=== PATIENT | male | born 2005 | race Caucasian/White ===

== ENCOUNTER 2024-07-29 10:30 | Emergency (ER) | payer BC, SELFPAY ==
[2024-07-29 10:35] VITALS: BP 126/62; PULSE 116; TEMP 36.8; O2SAT 95; BMI 23.0
--- NOTE | 2024-07-29 10:59 | XR_ITS ---
The [address] [address] Patient Name: MIGDALIA FAN MRN: [id number] date: 2005 Sex: M Assigned Patient Location: ER Current Patient Location: ER Accession/Order Number: [id number] Exam Date: 07/29/2024 11:12 Report Date: 07/29/2024 11:38 At the request of: BASIM GUTIERREZ Procedure: XR chest 1V EXAM: XR chest 1V HISTORY: sob COMPARISON: None. TECHNIQUE: The chest FINDINGS: No focal consolidation, pneumothorax, pleural effusion or significant pulmonary vascular congestion. The cardiomediastinal silhouette is within normal limits. No acute osseous abnormality. Visualized upper abdomen is unremarkable. XR/XR chest 1V IMPRESSION: No acute cardiopulmonary process. Electronically authenticated by: STUART WEN Date: 07/29/2024 11:38
[2024-07-29] MEDS: METHYLPREDNISOLONE SOD SUCC PF 125 MG/2 ML VIAL IVP (11:05)
[2024-07-29] MEDS: IPRATROPIUM/ALBUTEROL SULFATE 3 ML AMPUL.NEB IH (11:19)
[2024-07-29 11:22] VITALS: O2SAT 95
[2024-07-29] MEDS: ALBUTEROL SULFATE 200 PUFF/6.7 GM INHALER IH (11:55)
[2024-07-29 12:04] LABS: Basophils Percent Auto 0.4 % (0.2-2.0); Eosinophils Absolute Auto 1.3 10^3/uL (0.0-0.7); Eosinophils Percent Auto 15.3 % (0.9-7.0); Hematocrit 48.9 % (42.0-54.0); Hemoglobin 16.2 g/dL (14.0-18.0); Immature Granulocytes Abs Auto 0.02 10^3/uL (0.00-0.03); Immature Granulocytes Pct Auto 0.2 % (0.0-0.5); Lymphocytes Absolute Auto 2.1 10^3/uL (1.2-3.8); Lymphocytes Percent Auto 24.4 % (20.5-60.0); Mean Corpuscular HGB Conc 33.1 g/dL (29.9-35.2); Mean Corpuscular Hemoglobin 27.8 pg (25.9-34.0); Mean Platelet Volume 9.9 fL (9.5-13.5); Monocytes Absolute Auto 0.4 10^3/uL (0.3-0.8); Monocytes Percent Auto 4.9 % (1.7-12.0); Neutrophils Absolute Auto 4.7 10^3/uL (1.4-6.5); Neutrophils Percent Auto 54.8 % (43.0-75.0); Platelet Count 230 10^3/uL (150-450); Red Blood Count 5.82 10^6/uL (4.70-6.10); Red Cell Distribution Width 12.4 % (11.0-15.0); White Blood Count 8.5 10^3/uL (4.0-11.0)
--- NOTE | 2024-07-29 12:28 | ED_ITS ---
HPI - SOB/Dyspnea General Chief Complaint: Shortness of Breath/Dyspnea Stated Complaint: SOB Time Seen by Provider: 07/29/24 10:57 Source: patient Mode of arrival: walk-in Limitations: no limitations History of Present Illness HPI Narrative: The patient is coming to us with asthma exacerbation that started this morning, according to him he usually does wake up sometime in the morning short of breath according to his mom at the bedside he is supposed to be in [facility] she mentioned that it was only the inhaler that they were able to provide him with the sample from the doctor office, patient mentioned that the medication expense is the reason he is on [facility] Related Data Home Medications ?Medication ?Instructions ?Recorded ?Confirmed albuterol sulfate 2.5 mg/3 mL 2.5 mg inhalation Q6H PRN 07/29/24 07/29/24 (0.083 %) solution for nebulization shortness of breath or wheezing fexofenadine 180 mg tablet 180 mg PO DAILY 07/29/24 07/29/24 ([facility]) montelukast 10 mg tablet 10 mg PO DAILY 07/29/24 07/29/24 tiotropium bromide 1.25 2 inh inhalation DAILY 07/29/24 07/29/24 mcg/actuation mist for inhalation ([facility] Respimat) Previous Rx's ?Medication ?Instructions ?Recorded albuterol sulfate 2.5 mg/3 mL 2.5 mg (3 mL) inhalation QID PRN 07/29/24 (0.083 %) solution for nebulization shortness of breath or wheezing #90 mL albuterol sulfate 90 mcg/actuation 2 inh inhalation Q6H PRN shortness 07/29/24 aerosol inhaler (Ventolin HFA) of breath or wheezing #8.5 grams prednisone 20 mg tablet 40 mg (2 x 20 mg) PO DAILY 5 days 07/29/24 #10 tabs Allergies Allergy/AdvReac Type Severity Reaction Status Date / Time No Known Drug Allergies Allergy Verified 07/29/24 10:35 Review of Systems ROS Status of ROS 10 or more systems reviewed and unremark able except as noted in history and below PFSH PFSH Social History Little interest or pleasure in doing things: not at all Feeling down, depressed, or hopeless: not at all Exam Narrative Exam Narrative: Nurses notes and vital signs reviewed and patient is not hypoxic. General: Well-appearing and in no apparent distress. Skin: Warm, dry, no pallor noted. No rash. Head: Normocephalic, atraumatic. Neck: Supple, non-tender. Eye: Pupils are equal, round and EOMI. No scleral icterus. Ears, Nose, Mouth, and Throat: TM are clear, no nasal mucosal hypertrophy. Oral mucosa is moist, no posterior oropharynx erythema, uvula is mid-line Cardiovascular: Regular Rate and Rhythm without murmur, gallop or rub. Respiratory: Decreased air entry bilaterally with distant breathing sound Back: No midline thoracic or lumbar vertebral tenderness. No CVA tenderness Musculoskeletal: normal ROM, no calf or popliteal tenderness, no lower extrem ity edema/swelling GI: Abdomen is soft, non-distended. Normal bowel sounds. No masses appreciated. No tenderness to palpation. No rebound, guarding, or rigidity noted. Neurological: A&O x4. No cranial nerve dysfunction observed. No truncal ataxia. Moves all extremities. Sensation intact. Psychiatric: Cooperative and interactive. Normal mood and affect. Constitutional Vital Signs, click to edit/add: Last Vital Signs Temp 98.2 F 07/29/24 10:35 Pulse 116 H 07/29/24 10:35 Resp 18 07/29/24 10:35 BP 126/62 07/29/24 10:35 Pulse Ox 95 07/29/24 11:22 O2 Del Method Room Air 07/29/24 11:22 Course Vital Signs Vital signs: Vital Signs Temperature 98.2 F 07/29/24 10:35 Pulse Rate 116 H 07/29/24 10:35 Respiratory Rate 18 07/29/24 10:35 Blood Pressure 126/62 07/29/24 10:35 Pulse Oximetry 95 07/29/24 10:35 Temperature 98.2 F 07/29/24 10:35 Pulse Rate 116 H 07/29/24 10:35 Respiratory Rate 18 07/29/24 10:35 Blood Pressure 126/62 07/29/24 10:35 Pulse Oximetry 95 07/29/24 11:22 Oxygen Delivery Method Room Air 07/29/24 11:22 MDM - SOB/Dyspnea MDM Narrative Medical decision making narrative: X-ray of the chest showed no acute pathology CBC shows elevated eosinophils --- that correlate with the patient history of having elevated asthma he is currently taking montelukast Right now the patient presentation is mostly secondary to asthma exacerbation he was feeling better after initial to be treated with methylprednisone Discharged home with prednisone for the next 5 days in addition to refill of his albuterol for the nebulizer in addition to Ventolin inhaler The patient is to follow up with primary care physician in next 2-3 days or to return to the emergency department should any of the signs or symptoms worsen or new symptoms develop. The patient agrees with the following Diagnosis and Treatment plan and the patient will be discharged home. Lab Data Labs: Lab Results 07/29/24 Range/Units 10:41 WBC 8.5 (4.0-11.0) 10^3/uL RBC 5.82 (4.70-6.10) 10^6/uL Hgb 16.2 (14.0-18.0) g/dL Hct 48.9 (42.0-54.0) % MCV 84.0 (80.0-94.0) fL MCH 27.8 (25.9-34.0) pg MCHC 33.1 (29.9-35.2) g/dL RDW 12.4 (11.0-15.0) % Plt Count 230 (150-450) 10^3/uL MPV 9.9 (9.5-13.5) fL Neut % (Auto) 54.8 (43.0-75.0) % Lymph % (Auto) 24.4 (20.5-60.0) % [place] % (Auto) 4.9 (1.7-12.0) % Eos % (Auto) 15.3 H (0.9-7.0) % Baso % (Auto) 0.4 (0.2-2.0) % Neut # (Auto) 4.7 (1.4-6.5) 10^3/uL Lymph # (Auto) 2.1 (1.2-3.8) 10^3/uL [place] # (Auto) 0.4 (0.3-0.8) 10^3/uL Eos # (Auto) 1.3 H (0.0-0.7) 10^3/uL Baso # (Auto) 0.0 (0.0-0.1) 10^3/uL Abs Immat Gran (auto) 0.02 (0.00-0.03) 10^3/uL Imm/Tot Granulo (auto) 0.2 (0.0-0.5) % Discharge Plan Discharge Chief Complaint: Shortness of Breath/Dyspnea Clinical Impression: Asthma with acute exacerbation Patient Disposition: Home, Self-Care Time of Disposition Decision: 11:48 Condition: Good Prescriptions / Home Meds: New prednisone 20 mg tablet 40 mg PO DAILY 5 Days Qty: 10 0RF albuterol sulfate [Ventolin HFA] 90 mcg/actuation HFA aerosol inhaler 2 inh inhalation Q6H PRN (Reason: shortness of breath or wheezing) Qty: 8.5 0RF albuterol sulfate 2.5 mg /3 mL (0.083 %) solution for nebulization 2.5 mg inhalation QID PRN (Reason: shortness of breath or wheezing) Qty: 90 0RF No Action montelukast 10 mg tablet 10 mg PO DAILY albuterol sulfate 2.5 mg /3 mL (0.083 %) solution for nebulization 2.5 mg inhalation Q6H PRN (Reason: shortness of breath or wheezing) fexofenadine [[facility] Allergy] 180 mg tablet 180 mg PO DAILY [facility] Respimat 1.25 mcg/actuation mist 2 inh inhalation DAILY Print Language: Latvian Instructions: Asthma (ED) Referrals: Physician,Non-Staff, MD [Primary Care Provider] - 1 week Discharge Date/Time: 07/29/24 12:04
== END 2024-07-29 12:04 | disposition home or self-care (01) ==
PROVIDERS: Emergency Provider Emergency Medicine
DX: J45.901 Unspecified asthma with (acute) exacerbation (principal)
CPT/HCPCS: 36415; 71045; 85025; 94640; 96374; 99284; J2919